=== PATIENT | female | born 1955 | race Caucasian/White ===

== ENCOUNTER 2023-03-05 14:07 | Outpatient (RCR) | payer OTHER, SELFPAY | END 2023-05-24 10:33 | disposition home or self-care (01) | PROVIDERS: PCP Family Medicine; Visit Provider Orthopaedic Surgery Sports Medicine | DX: M17.12 Unilateral primary osteoarthritis, left knee (principal); M25.562 Pain in left knee; M25.662 Stiffness of left knee, not elsewhere classified; Z51.89 Encounter for other specified aftercare | CPT/HCPCS: 97161; 97535 ==

== ENCOUNTER 2023-03-07 07:08 | Day surgery (SDC) | payer OTHER, SELFPAY ==
[2023-03-05 12:08] VITALS: BP 122/84; PULSE 57; RESP 16; TEMP 35.9; O2SAT 93
[2023-03-05 12:15] VITALS: BP 124/71; PULSE 57; RESP 16; TEMP 35.9; O2SAT 93
[2023-03-07] VITALS (25 sets, daily range): BP systolic 107–145; BP diastolic 65–97; PULSE 47–81; RESP 12–18; TEMP 35.9–36.7; O2SAT 93–98; BMI 45.4
--- OUTSIDE RECORDS SUMMARY | 2023-03-07 07:11 | XMS_ITS ---
Author Name ANAMARIA WILLIS TIMOT HY Address Unknown Phone [phone] Organization Unknown Address Unknown Phone [phone] Care Team Providers Care Historical Site Guide Name Role Phone ANAMARIA WILLIS CRNA TIMOTHY Attending [phone] OUT OF AREA, . Primary Care [phone] ANAMARIA WILLIS CRNA TIMOTHY Physician [phone] Allergies and Intolerances Substance Reaction Severity Activated Date Status CALAN SR Rash Unknown 11/13/2022 Active CODEINE SULFATE nausea Unknown 11/13/2022 Active MORPHINE SULFATE GI Symptoms,Vomiting (disorder) Moderate 11/22/2022 Active PENICILLIN V POTASSIUM Rash Unknown 11/13/2022 Ac tive VENLAFAXINE HYDROCHLORIDE unknown Unknown 11/13/2022 Active ASSESSMENT Assessment Charted Date/Time No assessment available Encounter Diagnosis Encounter Diagnosis Diagnosis Date/Time Status Pain in left knee [M25.562] 12/06/2022 09:10 com pleted Medications Medication Strength Dosage Route Frequency Start Date Stop Date Status aspirin 81 MG Tablet Chewable 81 MG Tablet Chewable 81 mg Oral 1 x daily 3 08:40 active Crestor 10 MG Tablet 10 MG Tablet 10 mg Oral 1 x at bedtime 3 08:46 active NTG 0.4 MG Tablet Sublingual 0.4 MG Tablet Sublingual 0.4 mg Sublingual as needed every 5 minutes 3 08:43 active Oxy-IR 5 MG Tablet 5 MG Tablet 5 mg Oral as needed 2 x daily 3 08:45 active Synthroid 88 mcg 88 MCG Tablet 88 MCG Tablet 88 mcg Oral 1 x daily every morning 3 08:41 active Toprol XL 50 MG Tablet Extended Release 24 Hour 50 MG Tablet Extended Release 24 Hour 50 mg Oral 1 x daily 3 08:42 active Ultram 50 MG Tablet 50 MG Tablet 50 mg Oral as needed every 8 hours 3 15:49 active Vitamin D 1000 UNIT Tablet 1000 UNIT Tablet 1000 IU Oral 1 x daily 3 08:40 active Zestril / Prinivil 2.5 MG Tablet 2.5 MG Tablet 2.5 mg Oral 1 x daily 3 08:41 active Procedures Procedure Frequency Last Procedure Date Status Biopsy of breast (procedure) [633422363] completed Bypass of stomach (procedure) [238356795] completed Hysterectomy (procedure) [985704725] completed Placement of stent in wilhelm ry artery (procedure) [88593114] completed Total replacement of right k nee joint (procedure) [047907402] completed Appendectomy (procedure) [56261435] completed Cholecystectomy (procedure) [83230525] completed Plan of Treatment Plan Description Date Appointment ANAMARIA WILLIS TIMOTHY 3 Appointment ANAMARIA WILLIS TIMOTHY 3 Appointment ANAMARIA WILLIS TIMOTHY 3 Social History SOCIAL HISTORY TOBACCO USE Type Status Start Date End Date Last Reviewed Current Smoking Status Tobacco smoking c onsumption unknown Gender Identity and Sexual O rientation Type Status Last Reviewed Sex Female 00:00
--- OUTSIDE RECORDS SUMMARY | 2023-03-07 07:11 | XMS_ITS ---
Author Name ANAMARIA WILLIS TIMOT HY Address Unknown Phone [phone] Organization Unknown Address Unknown Phone [phone] Care Team Providers Care Chief Administrative Officer Name Role Phone ANAMARIA WILLIS CRNA TIMOTHY Attending [phone] ANAMARIA WILLIS CRNA TIMOTHY Admitting [phone] OUT OF AREA, . Primary Care [phone] ANAMARIA WILLIS CRNA TIMOTHY Ordering [phone] ANAMARIA WILLIS CRNA TIMOTHY Physician [phone] Allergies and Intolerances Substance Reaction Severity Activated Date Status CALAN SR Rash Unknown 11/13/2022 Active CODEINE SULFATE nausea Unknown 11/13/2022 Active MORPHINE SULFATE GI Symptoms,Vomiting (disorder) Moderate 11/22/2022 Active PENICILLIN V POTASSIUM Rash Unknown 11/13/2022 Ac tive VENLAFAXINE HYDROCHLORIDE unknown Unknown 11/13/2022 Active ASSESSMENT Assessment Charted Date/Time No assessment available Encounter Diagnosis Encounter Diagnosis Diagnosis Date/Time Status Pain in left knee [M25.562] 12/13/2022 07:57 com pleted Medications Medication Strength Dosage Route [...] Procedure Date Status Biopsy of breast (procedure) [565713958] completed Bypass of stomach (procedure) [969218158] completed Hysterectomy (procedure) [143801157] completed Placement of stent in wilhelm ry artery (procedure) [07227468] completed Total replacement of right k nee joint (procedure) [097007680] completed Appendectomy (procedure) [82542116] completed Cholecystectomy (procedure) [10004030] completed Vital Signs Description Result Charted Date/Time [facility] Blood Pressure - Systolic mm [Hg] - Sitting - Left Arm 101 12/13/2022 10:13 8480-6 Blood Pressure - Diastolic m m[Hg] - Sitting - Left Arm 54 12/13/2022 10:13 8462-4 MAP mm/Hg 69.67 12/13/2022 10:13 8478-0 Height/Length cm/in 157.48 / 62 12/13/2022 08:14 8302 -2 Weight kg/lb oz 102.97 / 227 12/13/2022 08:14 16095-7 BMI (Ratio) 41.52 12/13/2022 08:14 38875-3 Temperature deg F/Kathleen 97.2 / 36.2 12/13/2022 10:13 83 10-5 Heart Rate /min 63 12/13/2022 10:13 8867-4 Respiration /min 16 12/13/2022 10:13 9279-1 Pain Scale 0 12/13/2022 10:13 78071-0 SpO2 % 95 12/13/2022 10:13 35623-1 Medications Administered Medication Start Date Dosage Route Frequency Last Adm inistered fentaNYL citrate inj (100 mcg/2 ml) (Sublimaze) 12/13/2022 09:13 50 mcg IV PUSH ONCE 09:13 fentaNYL citrate inj (100 mcg/2 ml) (Sublimaze) 12/13/2022 09:20 50 mcg IV PUSH ONCE 09:20 midazolam inj 2 mg/2 ml (Versed) 12/13/2022 09:14 1 mg IV PUSH ONCE 12/13/2022 09:14 midazolam inj 2 mg/2 ml (Versed) 12/13/2022 09:19 1 mg IV PUSH ONCE 12/13/2022 09:19 Plan of Treatment Plan Description Date Appointment ANAMARIA WILLIS TIMOTHY 3 Appointment ANAMARIA WILLIS TIMOTHY 3 Social History SOCIAL HISTORY TOBACCO USE Type Status Start Date End Date Last Reviewed Current Smoking Status Tobacco smoking c onsumption unknown Gender Identity and Sexual O rientation Type Status Last Reviewed Sex Female 00:00
--- OUTSIDE RECORDS SUMMARY | 2023-03-07 07:11 | XMS_ITS ---
Author Name ANAMARIA WILLIS TIMOT HY Address Unknown Phone [phone] Organization Unknown Address Unknown Phone [phone] Care Team Providers Care Show Design Supervisor Name Role Phone ANAMARIA WILLIS CRNA TIMOTHY Attending [phone] OUT OF AREA, . Primary Care [phone] ANAMARIA WILLIS CRNA TIMOTHY Physician [phone] Allergies and Intolerances Substance Reaction Severity Activated Date Status CALAN SR Rash Unknown 11/13/2022 Active CODEINE SULFATE nausea Unknown 11/13/2022 Active MORPHINE SULFATE GI Symptoms,Vomiting (disorder) Moderate 11/22/2022 Active PENICILLIN V POTASSIUM Rash Unknown 11/13/2022 Ac tive VENLAFAXINE HYDROCHLORIDE unknown Unknown 11/13/2022 Active ASSESSMENT Assessment Charted Date/Time No assessment available Encounter Diagnosis Encounter Diagnosis Diagnosis Date/Time Status Pain in unspecified knee [M25.569] 01/24/2023 10 :15 completed Medications Medication Strength Dosage Route Frequency Start [...] Procedure Date Status Biopsy of breast (procedure) [703398774] completed Bypass of stomach (procedure) [891671367] completed Hysterectomy (procedure) [149073634] completed Placement of stent in wilhelm ry artery (procedure) [91251132] completed Total replacement of right k nee joint (procedure) [454875064] completed Appendectomy (procedure) [73636344] completed Cholecystectomy (procedure) [27929049] completed Plan of Treatment Plan Description Date Appointment ANAMARIA WILLIS TIMOTHY 3 Social History SOCIAL HISTORY TOBACCO USE Type Status Start Date End Date Last Reviewed Current Smoking Status Tobacco smoking c onsumption unknown Gender Identity and Sexual O rientation Type Status Last Reviewed Sex Female 00:00
--- OUTSIDE RECORDS SUMMARY | 2023-03-07 07:11 | XMS_ITS ---
Author Name ANAMARIA WILLIS TIMOT HY Address Unknown Phone [phone] Organization Unknown Address Unknown Phone [phone] Care Team Providers Care Telecommunicator Name Role Phone ANAMARIA WILLIS CRNA TIMOTHY Attending [phone] ANAMARIA WILLIS CRNA TIMOTHY Admitting [phone] OUT OF AREA, . Primary Care [phone] ANAMARIA WILLIS CRNA TIMOTHY Physician [phone] Allergies and Intolerances Substance Reaction Severity Activated Date Status CALAN SR Rash Unknown 11/13/2022 Active CODEINE SULFATE nausea Unknown 11/13/2022 Active MORPHINE SULFATE GI Symptoms,Vomiting (disorder) Moderate 11/22/2022 Active PENICILLIN V POTASSIUM Rash Unknown 11/13/2022 Ac tive VENLAFAXINE HYDROCHLORIDE unknown Unknown 11/13/2022 Active ASSESSMENT Assessment Charted Date/Time No assessment available Encounter Diagnosis Encounter Diagnosis Diagnosis Date/Time Status Pain in left knee [M25.562] 11/29/2022 07:54 com pleted Medications Medication Strength Dosage Route [...] Procedure Date Status Biopsy of breast (procedure) [315982471] completed Bypass of stomach (procedure) [883536627] completed Hysterectomy (procedure) [818415695] completed Placement of stent in wilhelm ry artery (procedure) [23784151] completed Total replacement of right k nee joint (procedure) [181797856] completed Appendectomy (procedure) [45569542] completed Cholecystectomy (procedure) [27249024] completed Vital Signs Description Result Charted Date/Time [facility] Blood Pressure - Systolic mm [Hg] - Sitting - Right arm 124 11/29/2022 09:06 8480-6 Blood Pressure - Diastolic m m[Hg] - Sitting - Right arm 58 11/29/2022 09:06 8462-4 MAP mm/Hg 80 11/29/2022 09:06 8478-0 Height/Length cm/in 152.4 / 60 11/29/2022 08:04 8302 -2 Weight kg/lb oz 103.87 / 229 11/29/2022 08:04 88843-3 BMI (Ratio) 44.72 11/29/2022 08:04 82956-2 Temperature deg F/Kathleen 97.5 / 36.4 11/29/2022 09:06 83 10-5 Heart Rate /min 65 11/29/2022 09:06 8867-4 Respiration /min 18 11/29/2022 09:06 9279-1 Pain Scale 0 11/29/2022 09:06 99044-0 Blood Sugar mg/dL 163 11/29/2022 08:04 85129- 7 SpO2 % 94 11/29/2022 09:06 21681-5 Plan of Treatment Plan Description Date Appointment [...]
--- OUTSIDE RECORDS SUMMARY | 2023-03-07 07:11 | XMS_ITS ---
Author Name ANAMARIA WILLIS TIMOT HY Address Unknown Phone [phone] Organization Unknown Address Unknown Phone [phone] Care Team Providers Care Casing Crew Name Role Phone ANAMARIA WILLIS CRNA TIMOTHY Attending [phone] ANAMARIA WILLIS CRNA TIMOTHY Admitting [phone] OUT OF AREA, . Primary Care [phone] ANAMARIA WILLIS CRNA TIMOTHY Physician [phone] Allergies and Intolerances Substance Reaction Severity Activated Date Status CALAN SR Rash Unknown 11/13/2022 Active CODEINE SULFATE nausea Unknown 11/13/2022 Active MORPHINE SULFATE GI Symptoms,Vomiting (disorder) Moderate 11/22/2022 Active PENICILLIN V POTASSIUM Rash Unknown 11/13/2022 Ac tive VENLAFAXINE HYDROCHLORIDE unknown Unknown 11/13/2022 Active ASSESSMENT Assessment Charted Date/Time No assessment available Encounter Diagnosis Encounter Diagnosis Diagnosis Date/Time Status Pain in left knee [M25.562] 11/22/2022 07:07 com pleted Medications Medication Strength Dosage Route [...] Procedure Date Status Biopsy of breast (procedure) [481970499] completed Bypass of stomach (procedure) [993191223] completed Hysterectomy (procedure) [832072319] completed Placement of stent in wilhelm ry artery (procedure) [53419648] completed Total replacement of right k nee joint (procedure) [549925169] completed Appendectomy (procedure) [07206498] completed Cholecystectomy (procedure) [05041332] completed Vital Signs Description Result Charted Date/Time LOINC Blood Pressure - Systolic mm [Hg] - Sitting - Left Arm 106 11/22/2022 07:24 8480-6 Blood Pressure - Diastolic m m[Hg] - Sitting - Left Arm 62 11/22/2022 07:24 8462-4 MAP mm/Hg 76.67 11/22/2022 07:24 8478-0 Height/Length cm/in 152.4 / 60 11/22/2022 07:24 8302 -2 Weight kg/lb oz 104.33 / 230 11/22/2022 07:24 51245-0 BMI (Ratio) 44.92 11/22/2022 07:24 70550-5 Temperature deg F/Kathleen 97 / 36.1 11/22/2022 07:24 83 10-5 Heart Rate /min 80 11/22/2022 07:24 8867-4 Respiration /min 20 11/22/2022 07:24 9279-1 Pain Scale 7 11/22/2022 07:24 97483-1 SpO2 % 94 11/22/2022 07:24 35231-2 Plan of Treatment Plan Description Date Appointment [...]
[2023-03-07] MEDS: LACTATED RINGERS 1000 ML 1,000 ML 100 ML IV (07:30)
--- NOTE | 2023-03-07 07:31 | CRLHL7_ITS ---
For Patients: As a result of the Cures Act, medical imaging exams and procedure reports are released immediately into your electronic medical record. You may view this report before your referring provider. If you have questions, please contact your health care provider. Indication: POST OP TKA Technique: Two views left knee Findings/Impression: Hardware from a left total knee arthroplasty is in satisfactory position. Bone alignment is normal. No sign of acute fracture. Postop changes are within normal limits. Dictated by Remy Overton MD @ 03/07/2023 12:27:16 PM (Electronically Signed)
[2023-03-07] MEDS: OXYCODONE (CR) 10 MG TAB.ER.12H PO (07:49)
[2023-03-07] MEDS: ACETAMINOPHEN 500 MG TABLET 1000 MG PO ×3 (07:49→19:52)
[2023-03-07] MEDS: SODIUM CHLORIDE 0.9 % (FLUSH) 10 ML SYRINGE IVF (07:50)
[2023-03-07] MEDS: MIDAZOLAM HCL 1 MG/ML inj IVP (08:31)
[2023-03-07] MEDS: fentaNYL 100 MCG/2 ML inj IVP (08:31)
--- NOTE | 2023-03-07 08:40 | P.NB_ITS ---
Nerve Block Nerve Block Time Seen by Provider: 08:34 Date Seen: 03/07/23 Type of block requested by surgeon for post-operative analgesia: adductor canal Side: left Time out performed: Yes Verification of patient name: Yes Verification of date of : Yes Site marking: site marked Name of person performing procedure: Conrado Continuous monitoring Was continuous monitoring of O2 sat, B/P, equipment monitor phototypesetting, recorded every 15 minutes?: Yes Procedure Checklist: sterile prep, needles and gloves Ultrasound guided. Images saved: Yes Medications given in 5ml increments after negative aspiration: Ropivicaine %: 0.5 mL: 20 Needle gauge: 20 Decadron (mg): 10 Precedex (mcg): 25 Patient tolerated procedure well: Yes Additional comments: Needle noted adjacent to nerve Block Charges Block Charge (with Pro Fee): Femoral Nerve Use of Ultrasound Machine for Block: Yes- US Guidance/pain block
--- NOTE | 2023-03-07 08:41 | W.PM.NB ---
Nerve Block Nerve Block Time Seen by Provider: 08:34 Date Seen: 03/07/23 Type of block requested by surgeon for post-operative analgesia: geniculars Side: left Time out performed: Yes Verification of patient name: Yes Verification of date of : Yes Site marking: site marked Name of person performing procedure: Conrado Continuous monitoring Was continuous monitoring of O2 sat, B/P, monitoring manager, recorded every 15 minutes?: Yes Procedure Checklist: sterile prep, needles and gloves Medications given in 5ml increments after negative aspiration: Ropivicaine %: 0.5 mL: 9 Needle gauge: 25 Patient tolerated procedure well: Yes Block Charges Block Charge (with Pro Fee): Genicular Nerve Block Use of Ultrasound Machine for Block: No
--- NOTE | 2023-03-07 08:41 | W.ANESCHARGE ---
Anesthesia Charges Start Date/Time Anesthesia Start Date: 03/07/23 Anesthesia Start Time: 09:07 Stop Date/Time Anesthesia Stop Date: 03/07/23 Anesthesia Stop Time: 11:27
--- NOTE | 2023-03-07 08:42 | SUR.PREOP ---
TIME?OUT:?0830 PT/RN/MDA?VERIFICATION?OF?SURGICAL?SITE left knee,?PROCEDURE nerve block,?AND?CONSENT OBTAINED?PRIOR?TO?INVASIVE?PROCEDURE.
[2023-03-07] MEDS: TRANEXAMIC ACID 100 MG/ML INJ 1000 MG IV (09:20)
[2023-03-07] MEDS: CEFAZOLIN 2 GM in 0.9 % SODIUM CHLORIDE Mini-bag 100 ML IVPB ×3 (09:20→23:40)
--- NOTE | 2023-03-07 10:43 | PM.ORPRC ---
Procedure Note Date of procedure: 03/07/23 Procedure: PREOPERATIVE DIAGNOSIS: 1. Left knee osteoarthritis, primary, severe 2. Morbid obesity-BMI 45.5 POSTOPERATIVE DIAGNOSIS: 1. Left knee osteoarthritis, primary, severe 2. Morbid obesity-BMI 45.5 PROCEDURE: 1. Left total knee arthroplasty-of note, 33% added difficulty and time for this case due to patient's body habitus with BMI 45.5. This necessitated the stem of the tibial component to minimize the risk for aseptic loosening. This also required increased retractors and hands for assistance as well as increased closure time. SURGEON: Javon Mg MD. VISUAL PRESENTATION MANAGER: Francisco James PA-C - Of note, a skilled orthopaedic physician assistant was critical for this case to aid in patient positioning, tissue retraction, limb manipulation/positioning, and closure. ANESTHESIA: Spinal anesthetic EBL: 50ml IMPLANTS: DePuy J&J all cemented TKA - Attune PS femur size 5 regular, size 3 tibia with the 10 x 50 mm tibial stem, 5 poly spacer, 30 to mm patella TOURNIQUET: 90 min at 300 torr COMPLICATIONS: None evident INDICATIONS: The patient is a pleasant 68-year-old female who has experienced severe left knee pain and difficulty bearing weight. Workup included x-rays which revealed severe osteoarthrosis in the knee. Given the deformity, the dysfunction, and the pain, as well as the failure of nonoperative management, recommendation was made for surgery. FINDINGS: Moderate effusion upon entering the joint. Full-thickness chondral loss broadly throughout the medial femoral condyle, trochlear groove, and patella. To lesser degree lateral compartment. Tricompartmental osteophytes noted. Relatively soft cancellous bone encountered throughout. DESCRIPTION OF PROCEDURE: Following a thorough discussion of risks, benefits, and alternatives consent was obtained and the left knee was marked. The patient was brought to the operating room and placed supine on the operating table. Induction of anesthesia was undertaken. 2 g IV Ancef and 1 g tranexamic acid was administered within 1 hr of incision preoperatively. Proper time-out was performed identifying proper patient, site, procedure. The operative extremity was prepped and draped in the appropriate sterile fashion using ChloraPrep after the patient was positioned supine with all bony prominences well padded. A longitudinal, anterior, midline skin incision was made starting approximately 3cm proximal to the superior pole of the patella and advanced distal to the tibial tubercle. A median parapatellar arthrotomy was created. A medial subperiosteal sleeve was created with knife, crain elevator and curved osteotome. The retropatellar fatpad was resected and the synovium in the suprapatellar pouch excised to visualize the anterior femoral cortex. Femoral preparation was performed via an intramedullary guide. Step drill allowed access into the femoral canal. The distal cutting guide was placed with 5? of valgus and 10 mm cut on the distal femur. Femur was sized using a posterior referencing guide in 3? of external rotation. This found have a best fit with the sizing noted above. The 4 in 1 cutting block was then placed, and the distal femur shaped accordingly. The box cut was then created and the trial implant inserted to confirm appropriate fit. We turned our attention to the proximal tibia. Extramedullary guide was utilized for cutting with the goal of being 90 degree cut from the mechanical axis of the tibia in the varus/valgus plane utilizing tibial crest as the primary alignment. Initially a 2 mm resection was performed from the medial tibial plateau. An additional 2 mm did require resection. Ultimately, balancing was achieved in both flexion and extension in both varus and valgus. The knee was able to achieve full extension as well comfortably. The patella was initially measured and found have a thickness of 22 mm. It was resected back to approximately 14.5 mm. It was sized to be a best fit with as noted above. This was drilled, trial placed. All trials were placed and found to have an excellent stability and balance. At this stage, trial implants were removed, the knee was thoroughly irrigated with normal saline, and the cement was mixed. After irrigation, the knee was thoroughly dried, and cement placed, with the real tibial and femoral implants placed along with the patella. Trial poly spacer was placed and confirmed to have excellent range of motion and full extension, and the real poly spacer opened and inserted. All extra cement was removed, and a 3 min Betadine soak performed. Finally, a final irrigation round with normal saline was performed. Closure performed with 0 PDS and #0 Stratafix for the quad tendon/retinaculum. 2-0 Vicryl/Stratafix for the subcutaneous and 4-0 Monocryl for subcuticular closure. Dressings were applied and the patient was awoken from anesthesia after the tourniquet deflated and transferred the PACU in stable condition. A skilled orthopaedic physician assistant was critical for this case to aid in patient positioning, tissue retraction, bone exposure, limb manipulation/positioning, patient safety, and closure. *Of note, 33% added difficulty and time for this case due to patient's body habitus with BMI 45.5. This necessitated the stem of the tibial component to minimize the risk for aseptic loosening. This also required increased retractors and hands for assistance as well as increased closure time. PLAN: 1. Weight bear as tolerated operative extremity. 2. 23 hr perioperative antibiotics. 3. Ice. 4. PT/OT consults for ambulation assistance/mobility education. 5. Social work consult for discharge planning. 6. DVT prophylaxis with at SCDs, Dhruv Hose, and aspirin twice daily.
--- NOTE | 2023-03-07 11:27 | W.ANESCHARGE ---
Anesthesia Charges Start Date/Time Anesthesia Start Date: 03/07/23 Anesthesia Start Time: 09:07 Stop Date/Time Anesthesia Stop Date: 03/07/23 Anesthesia Stop Time: 11:27
--- NOTE | 2023-03-07 14:02 | PM.IMPN1 ---
Progress Note: A&P Assessment and plan (1) Osteoarthritis of left knee: Problem details: End-stage medial and patellofemoral compartments Status: Acute (2) Obesity, Class III, BMI 40-49.9 (morbid obesity): Problem details: BMI 44.2 (previous BMI of 45) Status: Acute (3) History of coronary artery stent placement: Problem details: 2020 Status: Acute Plan 1. s/p 1.? Left total knee arthroplasty/ Spinal anesthetic/EBL:50ml -pain control; diet; dvt ppx per surgery 2. Hx of CAD/HTN -hold metoprolol and lisinopril due to soft BP and bradycardia -continue statin 3. Hx of diet controlled T2Dm; a1c 5.4 -continue gabapentin 4. hx of Hypothyroidism -cotninue synthroid 5. Hx of HLD -continue statin 6. Hx of SUMANTH -does not use cpap Subjective Date Seen: 03/07/23 Interval history: POSTOPERATIVE DIAGNOSIS: 1.? Left knee osteoarthritis, primary, severe 2.? Morbid obesity-BMI 45.5 PROCEDURE: 1.? Left total knee arthroplasty ANESTHESIA:? Spinal anesthetic EBL: ? 50ml The patient is stable following surgery She denies chest pain, sob, nausea and vomiting post surgical pain is controlled tolerating diet at bedside Exam Narrative: Exam Narrative: Gen: no acute distress HEENT: NCAT EOMI mmm CV: bradycardic normal s1 s2 Lungs: CTAB Abd: Soft,nt, nd Neuro: Alert, oriented, CN grossly intact; nonfocal screening?exam Psych: appropriate affect MSK: age appropriate muscle mass Skin; Warm, dry no rash on face Const: Vital Signs, click to edit/add: Vital Signs - 24 hr 03/07/23 07:38 03/07/23 08:08 03/07/23 08:32 Temperature 97.7 F Pulse Rate 61 60 55 L Respiratory Rate 16 16 16 Blood Pressure 135/75 127/70 135/73 Pulse Oximetry 94 98 98 Oxygen Delivery Me thod Room Air Nasal Cannula Nasal Cannula Oxygen Flow Rate 2 2 03/07/23 08:36 03/07/23 11:23 03/07/23 11:30 Temperature 97.3 F L Pulse Rate 56 L 62 58 L Respiratory Rate 16 12 14 Blood Pressure 114/65 107/65 107/70 Pulse Oximetry 98 96 95 Oxygen Delivery Me thod Nasal Cannula Room Air Room Air Oxygen Flow Rate 2 03/07/23 11:35 03/07/23 11:40 03/07/23 11:45 Temperature 97.2 F L Pulse Rate 59 L 53 L 55 L Respiratory Rate 12 12 14 Blood Pressure 109/69 114/75 115/74 Pulse Oximetry 94 95 94 Oxygen Delivery Me thod Room Air Room Air Room Air Oxygen Flow Rate 03/07/23 11:50 03/07/23 11:55 03/07/23 12:00 Temperature 97.3 F L Pulse Rate 56 L 58 L 54 L Respiratory Rate 12 12 14 Blood Pressure 118/74 118/74 122/81 Pulse Oximetry 94 94 95 Oxygen Delivery Me thod Room Air Room Air Room Air Oxygen Flow Rate
[2023-03-07] MEDS: OXYCODONE 5 MG TABLET PO ×4 (14:05→22:23)
--- NOTE | 2023-03-07 15:09 | PC.NURSE ---
Pt arrived in hospital bed from PACU to med/surg room 257 @ 1208 pm s/p LTKA with Dr. Mg. Please see initial assessment from PACU and frequent post op VS per protocol. Pt tolerated CL lunch. Oxycodone 5mg with tylenol ES 1000 mg PO for pain 1 out of 10 as premed for planned PT with [facility] at 3pm. Eval by Dr. Finley. Pt has not yet voided since arrival to floor. Report to Kami REYES.
[2023-03-07] MEDS: LACTATED RINGERS 1000 ML 1,000 ML 75 ML IV (15:26)
--- NOTE | 2023-03-07 18:45 | PC.NURSE ---
VSS AND AFEBRILE. DRESSING CDI. CRYOCUFF TO LEFT KNEE. PAIN CONTROLLED WITH SCHEDULED TYLENOL AND PRN OXYCODONE. UP WITH A1, WALKER AND GAIT BELT AND TOLERATING ACTIVITY WELL. TOLERATING REGULAR DIET WITH NO C/O N/V.
[2023-03-07] MEDS: ROSUVASTATIN CALCIUM 10 MG TABLET PO (21:04)
[2023-03-07] MEDS: GABAPENTIN 100 MG CAPSULE PO (21:04)
[2023-03-07] MEDS: SENNOSIDES 1 TAB TABLET 2 TAB PO (21:04)
[2023-03-07] MEDS: ASPIRIN 81 MG TABLET EC PO (21:04)
[2023-03-08] MEDS: ACETAMINOPHEN 500 MG TABLET 1000 MG PO ×2 (02:24→08:10)
[2023-03-08] MEDS: OXYCODONE 5 MG TABLET PO ×3 (02:24→10:24)
[2023-03-08 03:00] VITALS: BP 126/63; PULSE 84; RESP 20; TEMP 36.3; O2SAT 92
--- NOTE | 2023-03-08 05:33 | PC.NURSE ---
Alert and oriented x 4. CMS to left lower extremity intact, mild weakness to extremity. Dressing to left knee clean, dry and intact. Cryocuff utilized. Pain well managed wtih tylenol and prn oxycodone. Up with SBA with walker. Drinking well and having good output, IV fluids stopped and saline locked. At 0315 patient requested plexipulses be stopped for a short period of time as they were keeping her awake, marine underwriter removed and patient educated on frequent ankle pumps while awake. Denies any nausea or vomiting.
[2023-03-08] MEDS: LEVOTHYROXINE 88 MCG TABLET PO (06:22)
[2023-03-08 06:33] LABS: Hematocrit 35.2 % (33.0-51.0); Hemoglobin* 11.6 gm/dL (12.0-16.0); Immature Granulocytes Pct Auto 0.2 %; Lymphocytes Percent Auto 12.9 % (20-44); Mean Corpuscular HGB Conc 33 gm/dL (32-36); Mean Corpuscular Hemoglobin 30 pg (26-34); Mean Corpuscular Volume 92 fL (80-100); Monocytes Percent Auto 7.2 % (0.0-11.0); Neutrophils Percent Auto 79.7 % (42.0-72.0); Platelet Count* 288 K/uL (140-440); RDW Coefficient of Variation % 12.6 % (11.5-15.5); Red Blood Count 3.84 m/uL (4.00-5.20); White Blood Count* 12.28 K/uL (4.50-11.00)
[2023-03-08 06:40] LABS: Slide Review Reflex No
[2023-03-08 06:46] LABS: Sodium* 136 mmol/L (135-149)
[2023-03-08 06:47] LABS: Potassium* 4.3 mmol/L (3.6-5.1)
[2023-03-08 06:50] LABS: Blood Urea Nitrogen* 14 mg/dL (7-30); Creatinine* 0.6 mg/dL (0.5-1.5); Est. Creatinine Clearance* 39.75; Estimated Glomerular Filt Rate 99 ml/min
[2023-03-08 07:00] VITALS: BP 145/68; PULSE 78; RESP 18; TEMP 36.8; O2SAT 97
[2023-03-08] MEDS: SENNOSIDES 1 TAB TABLET 2 TAB PO (08:10)
[2023-03-08] MEDS: ASPIRIN 81 MG TABLET EC PO (08:11)
[2023-03-08] MEDS: CEFAZOLIN 2 GM in 0.9 % SODIUM CHLORIDE Mini-bag 100 ML IVPB (08:11)
[2023-03-08 09:12] VITALS: BP 122/81; PULSE 54; RESP 20; TEMP 36.3
[2023-03-08 11:00] VITALS: BP 141/77; PULSE 91; RESP 18; O2SAT 93
--- NOTE | 2023-03-08 11:57 | PC.NURSE ---
Nursing Care Hours: [id number] Pt this shift calm and cooperative. Alert and oriented. Pain 4/10 prior to PT, 6/10 after, treated per eMAR. Bandage CDI, CMS intact. Pt tolerating regular meals, up to bathroom with SB assist. LS clear, diminished bases. Encouraged pt to use IS and take deep breaths. IV removed for discharge, instructions and education went over with pt and spouse. All questions and concerns addressed, wheeled out to vehicle in stable condition.
--- NOTE | 2023-03-08 16:25 | PM.ORPN ---
Subjective Subjective Date Seen: 03/08/23 Principal diagnosis: Status postop day 1 left total knee arthroplasty Interval history: Patient reports doing well. No acute events over night. Pain managed with scheduled and PRN medications, ice. DVT prophylaxis: 81 mg aspirin by mouth twice daily, bilateral knee high Dhruv stockings, SCDs, walking. Denies fevers, chills, aches, N/V, CP, SOB/GARAY, or lightheadedness. POSTOPERATIVE DIAGNOSIS: 1.? Left knee osteoarthritis, primary, severe 2.? Morbid obesity-BMI 45.5 PROCEDURE: 1.? Left total knee arthroplasty ANESTHESIA:? Spinal anesthetic EBL: ? 50ml The patient is stable following surgery She denies chest pain, sob, nausea and vomiting post surgical pain is controlled tolerating diet at bedside Ortho Exam Narrative Exam Narrative: -Patient appears comfortable; no apparent acute distress -Alert and oriented times 3 -Operative knee mildly swollen; soft tissues supple; no ecchymosis; no erythematous streaking Warmth appropriate -Surgical dressing clean, dry, intact; no drainage -Bilateral calfs soft; no significant swelling, edema, tenderness, erythema, discoloration, warmth, or palpable cords -2+ DP/PT pulses, intact dermatomes and myotomes distally (5/5 strength) Const Vital Signs, click to edit/add: Vital Signs - 24 hr 03/07/23 17:00 03/07/23 17:42 03/07/23 19:50 Temperature 97 F L 98.0 F Pulse Rate Pulse Rate [Right Pulse Oximeter] 67 60 81 Respiratory Rate 16 16 12 Blood Pressure Blood Pressure [Left Arm] 131/79 140/97 H 132/77 Pulse Oximetry 96 96 95 Oxygen Delivery Method Room Air Room Air Room Air Oxygen Flow Rate 2 03/07/23 19:50 03/07/23 23:00 03/07/23 23:00 Temperature 97.1 F L Pulse Rate Pulse Rate [Right Pulse Oximeter] 81 79 Respiratory Rate 12 18 Blood Pressure Blood Pressure [Left Arm] 145/75 H Pulse Oximetry 93 93 Oxygen Delivery Method Room Air Oxygen Flow Rate 03/08/23 03:00 03/08/23 07:00 03/08/23 07:00 Temperature 97.4 F L Pulse Rate Pulse Rate [Right Pulse Oximeter] 84 78 Respiratory Rate 20 18 Blood Pressure Blood Pressure [Left Arm] 126/63 Pulse Oximetry 92 97 Oxygen Delivery Method Room Air Oxygen Flow Rate 03/08/23 07:00 03/08/23 09:12 03/08/23 11:00 Temperature 98.2 F 97.4 F L Pulse Rate 54 L Pulse Rate [Right Pulse Oximeter] 91 Respiratory Rate 18 20 18 Blood Pressure 122/81 Blood Pressure [Left Arm] 145/68 H 141/77 H Pulse Oximetry 97 93 Oxygen Delivery Method Room Air Room Air Oxygen Flow Rate Assessment and Plan Assessment and plan (1) S/P total knee arthroplasty: Problem details: POD 1 left Status: Acute (2) Osteoarthritis of left knee: Problem details: End-stage medial and patellofemoral compartments Status: Acute (3) Obesity, Class III, BMI 40-49.9 (morbid obesity): Problem details: BMI 44.2 (previous BMI of 45) Status: Acute (4) History of coronary artery stent placement: Problem details: 2019 Status: Acute Plan - Complete 23 hour perioperative antibiotics. - PT/OT consult for education and assistance. - Social work consult for discharge planning - Prescribed analgesics as needed - DVT prophylaxis: 81 mg aspirin by mouth twice daily, bilateral knee high Dhruv Hose stockings and SCDs - Anticipation is for discharge to home with spouse today 03/08/2023 if the patient remains medically stable, pain is controlled, and they are safe with mobilization.
== END 2023-03-08 10:50 | disposition home or self-care (01) ==
LOC: OR 07:09 → MEDSURG 07:18
PROVIDERS: PCP Family Medicine; Visit Provider Orthopaedic Surgery Sports Medicine
PROC: (CPT 27447; principal; 2023-03-07 09:15)
DX: M17.12 Unilateral primary osteoarthritis, left knee (principal); E66.01 Morbid (severe) obesity due to excess calories; Z68.42 Body mass index [BMI] 45.0-49.9, adult; G89.18 Other acute postprocedural pain; G47.33 Obstructive sleep apnea (adult) (pediatric); I10 Essential (primary) hypertension; I25.10 Atherosclerotic heart disease of native coronary artery without angina pectoris; E11.9 Type 2 diabetes mellitus without complications; E03.9 Hypothyroidism, unspecified
CPT/HCPCS: 27447; 01402; 36415; 64447; 64454; 73560; 76942; 82565; 82962; 84132; 84295; 84520; 85025; 97110; 97116; 97161; 97165; 97535; A9270; C1776; J0690; J1100; J2250; J2405; J2704; J2795; J3010; J7120

== ENCOUNTER 2023-04-25 06:15 | Day surgery (SDC) | payer OTHER, SELFPAY ==
[2023-04-25] VITALS (14 sets, daily range): BP systolic 103–134; BP diastolic 56–75; PULSE 57–79; RESP 10–20; TEMP 36.3–37.1; O2SAT 94–97; BMI 43.5
[2023-04-25] MEDS: LACTATED RINGERS 1000 ML 1,000 ML 100 ML IV (06:25)
[2023-04-25] MEDS: fentaNYL 100 MCG/2 ML inj IVP (07:10)
[2023-04-25] MEDS: MIDAZOLAM HCL 1 MG/ML inj IVP (07:10)
--- NOTE | 2023-04-25 07:18 | SUR.PREOP ---
TIME?OUT:?0709 PT/RN/MDA?VERIFICATION?OF?SURGICAL?SITE,?PROCEDURE,?AND?CONSENT OBTAINED?PRIOR?TO?INVASIVE?PROCEDURE.
--- NOTE | 2023-04-25 07:53 | P.ORPRC_ITS ---
Procedure Note Date of procedure: 04/25/23 Procedure: PREOPERATIVE DIAGNOSIS: 1. 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 Left total knee arthroplasty manipulation under anesthesia SURGEON: Javon Mg MD. PARACHUTE/COMBATANT DIVER OFFICER: SERGIO Solorio ANESTHESIA: General LMA EBL: 0 ml IMPLANTS: None TOURNIQUET: None COMPLICATIONS: None evident INDICATIONS: The patient is a pleasant 68-year-old female who has experienced significant tightness of her left knee following TKA approximately 7 weeks ago. In clinic, she was found have range of motion approximately 0-50 degrees. Given the poor range of motion, it was recommended undergo a manipulation under anesthesia. Of note, she did require the similar experience on the contralateral right knee at approximately 6-7 weeks following that right TKA in the remote past. FINDINGS: Initial range of motion 0-50 degrees. Following manipulation, with simple gravity she achieved 0-110 degrees. With mild pressure she achieved 0- 120 degrees and with significant pressure she achieved 0-135 degrees. DESCRIPTION OF PROCEDURE: Following a thorough discussion of risks, benefits, and alternatives consent was obtained and the left knee was marked. The patient was brought to the operating room and placed supine on the operating table. No antibiotics were utilized as this was planned to be a closed procedure. Proper time-out was performed identifying proper patient, site, procedure. Initially, the range of motion was assessed and found to be 0-50 degrees. Gentle pressure was applied with knee flexion with a short left her arm. Subtle adhesions could be felt and heard to be breaking during the manipulation. Again the motion is noted as above. Following the procedure, the patella also was manipulated today both medial and laterally and found to have improved range of motion compared to the preoperative state. PLAN: 1. Weight bear as tolerated operative extremity. 2. Ice. 3. CPM machine daily 4. PT 3x / week
--- NOTE | 2023-04-25 07:58 | W.ANESCHARGE ---
Anesthesia Charges Start Date/Time Anesthesia Start Date: 04/25/23 Anesthesia Start Time: 07:23 Stop Date/Time Anesthesia Stop Date: 04/25/23 Anesthesia Stop Time: 07:55
--- NOTE | 2023-04-25 07:59 | W.ANESCHARGE ---
Anesthesia Charges Start Date/Time Anesthesia Start Date: 04/25/23 Anesthesia Start Time: 07:23 Stop Date/Time Anesthesia Stop Date: 04/25/23 Anesthesia Stop Time: 07:55
--- NOTE | 2023-04-25 08:26 | P.NB_ITS ---
Nerve Block Nerve Block Time Seen by Provider: 07:14 Date Seen: 04/25/23 Type of block requested by surgeon for post-operative analgesia: adductor canal Side: left Time out performed: Yes Verification of patient name: Yes Verification of date of : Yes Site marking: site marked Name of person performing procedure: Conrado Continuous monitoring Was continuous monitoring of O2 sat, B/P, brasswind instrument repairer, recorded every 15 minutes?: Yes Procedure Checklist: sterile prep, needles and gloves Ultrasound guided. Images saved: Yes Medications given in 5ml increments after negative aspiration: Ropivicaine %: 0.5 mL: 20 Needle gauge: 20 Decadron (mg): 10 Precedex (mcg): 25 Patient tolerated procedure well: Yes Additional comments: Needle noted adjacent to nerve Block Charges Block Charge (with Pro Fee): Femoral Nerve Use of Ultrasound Machine for Block: Yes- US Guidance/pain block
--- NOTE | 2023-04-25 08:27 | W.PM.NB ---
Nerve Block Nerve Block Time Seen by Provider: 07:14 Date Seen: 04/25/23 Type of block requested by surgeon for post-operative analgesia: geniculars Side: left Time out performed: Yes Verification of patient name: Yes Verification of date of : Yes Site marking: site marked Name of person performing procedure: Conrado Continuous monitoring Was continuous monitoring of O2 sat, B/P, rigging loft mechanic, recorded every 15 minutes?: Yes Procedure Checklist: sterile prep, needles and gloves Medications given in 5ml increments after negative aspiration: Ropivicaine %: 0.5 mL: 9 Needle gauge: 25 Patient tolerated procedure well: Yes Block Charges Block Charge (with Pro Fee): Genicular Nerve Block Use of Ultrasound Machine for Block: No
[2023-04-25] MEDS: OxyCODONE/APAP 5-325 TABLET PO (08:58)
== END 2023-04-25 09:25 | disposition home or self-care (01) ==
PROVIDERS: PCP Family Medicine; Visit Provider Orthopaedic Surgery Sports Medicine
PROC: (CPT 27570; principal; 2023-04-25 07:30)
DX: M24.662 Ankylosis, left knee (principal); G89.18 Other acute postprocedural pain
CPT/HCPCS: 27570; 01380; 64447; 64454; 76942; 82962; A9270; J2250; J2405; J2704; J3010; J7120

== ENCOUNTER 2024-11-22 07:50 | Emergency (ER) | payer MEDICARE, OTHER, SELFPAY ==
--- OUTSIDE RECORDS SUMMARY | 2024-11-22 07:52 | XMS_ITS ---
Author Name ANAMARIA WILLIS TIMOT HY Address Unknown Phone [phone] Organization Unknown Address Unknown Phone [phone] Care Team Providers Care Project Construction Manager Name Role Phone ANAMARIA WILLIS CRNA TIMOTHY Attending [phone] ANAMARIA WILLIS CRNA TIMOTHY Admitting [phone] OUT OF AREA, . Primary Care [phone] ANAMARIA WILLIS CRNA TIMOTHY Ordering [phone] ANAMARIA WILLIS CRNA TIMOTHY Physician [phone] Allergies and Intolerances Substance Reaction Severity Activated [...] Procedure Date Status Biopsy of breast (procedure) [245494049] completed Bypass of stomach (procedure) [[id number]] completed Hysterectomy (procedure) [[id number]] completed Placement of stent in wilhelm ry artery (procedure) [[id number]] completed Total replacement of right k nee joint (procedure) [[id number]] completed Appendectomy (procedure) [42821023] completed Cholecystectomy (procedure) [[id number]] completed Vital Signs Description Result Charted Date/Time [facility] Blood Pressure - Systolic mm [Hg] - Sitting - Left Arm 101 12/13/2022 10:13 8480-6 Blood Pressure - Diastolic m m[Hg] - Sitting - Left Arm 54 12/13/2022 10:13 8462-4 MAP mm/Hg 69.67 12/13/2022 10:13 8478-0 Height/Length cm/in 157.48 / 62 12/13/2022 08:14 8302 -2 Weight kg/lb oz 102.97 / 227 12/13/2022 08:14 46655-6 BMI (Ratio) 41.52 12/13/2022 08:14 85867-0 Temperature deg F/Kathleen 97.2 / 36.2 12/13/2022 10:13 83 10-5 Heart Rate /min 63 12/13/2022 10:13 8867-4 Respiration /min 16 12/13/2022 10:13 9279-1 Pain Scale 0 12/13/2022 10:13 04689-7 SpO2 % 95 12/13/2022 10:13 64821-7 Medications Administered Medication Start Date Dosage Route [...]
--- OUTSIDE RECORDS SUMMARY | 2024-11-22 07:52 | XMS_ITS | Clinical Summary ---
Author Organization [facility] Address [address] [place] [id number] Care Team Providers Care Radiation Control Worker Name Role Phone Chantel Koch MD Primary Care Provide r Allergies Active Allergy Reactions Criticality Noted Date Comments Ticagrelor Shortness Of Breath,Nausea Only,Headache,Myalg ia 06/18/2020 Codeine Hives,Nausea Only Medium 08/09/2005 Isosorbide Headache 06/11/2020 Morphine Nausea And Vomiting,Nausea Only Medium 08/09/2005 Nsaids (Non-Steroidal Anti-Inflammatory Drug) *Unknown Unknown 04/21/2009 Patient reports has had Gastric Bypass and unable to take Penicillin V Hives 10/24/2022 Penicillins Hives Medium 08/24/2005 PT. STATES PEN V K SPECIFICALLY Venlafaxine Dizziness 10/24/2022 Venlafaxine Analogues Dizziness Medium 12/07/2009 Verapamil Hives Medium 02/22/2007 Medications CENTRUM ORAL Take 1 Tablet by mouth once daily. 0 Active acetaminophen (TYLENOL EXTRA STRGTH) 500 mg tabletIndication s:Headache Take 1 tablet by mouth every 6 hours if needed for Headache or Pain. Max acetaminophen dose: 4000mg in 24 hrs. 20 tablet 0 03/05/20 14 Active cholecalciferol (VITAMIN D-3) 2,000 unit capsule Take 2,000 Units by mouth once daily. Active aspirin chewable 81 mg chewable tabletIndication s:Coronary artery disease involving lummi coronary artery without angina pectoris, unspecified whether lummi or transplanted heart Take 1 tablet by mouth once daily with a meal. 0 06/20/20 18 Active nitroglycerin (NITROSTAT) 0.4 mg sublingual tabletIndication s:Heart abnormality Place 1 Tablet (0.4 mg) under the tongue every 5 minutes if needed for Chest Pain. Place 1 tablet under the tongue every 5 minutes if needed for Chest Pain. 25 Tablet 2 11/27/19 24 Active ranolazine (RANEXA) 500 mg Controlled-Relea se tabletIndication s:CAD in lummi artery,Chest pain, unspecified type Take 1 Tablet (500 mg) by mouth two times daily. 180 Tablet 3 06/12/20 24 Active gabapentin (NEURONTIN) 100 mg capsuleIndicatio ns:Hot flashes Take 1 Capsule (100 mg) by mouth at bedtime. 90 Capsule 3 06/12/20 24 Active docusate (COLACE) 100 mg capsuleIndicatio ns:Chronic constipation Take 1 Capsule (100 mg) by mouth 2 times daily if needed for Constipation. 06/12/20 24 Active metoprolol tartrate (LOPRESSOR) 25 mg tabletIndication s:Coronary artery disease involving lummi heart, unspecified vessel or lesion type, unspecified whether angina present Take 1 Tablet (25 mg) by mouth two times daily. 180 Tablet 3 06/12/20 24 Active docusate (COLACE) 100 mg capsuleIndicatio ns:Chronic constipation Take 1 Capsule (100 mg) by mouth 2 times daily if needed for Constipation. 180 Capsule 3 06/12/20 24 Active levothyroxine (SYNTHROID) 75 mcg tabletIndication s:Hypothyroidism (acquired) Take 1 Tablet (75 mcg) by mouth before breakfast. 90 Tablet 3 06/19/20 24 Active cyanocobalamin (VITAMIN B12) 1,000 mcg/mL injectionIndicat ions:Vitamin B12 deficiency INJECT 1 ML (1,000 MCG) SUBCUTANEOUS EVERY 4 WEEKS. 3 mL 1 06/29/20 24 Active rosuvastatin (CRESTOR) 10 mg tabletIndication s:CAD in lummi artery Take 1 Tablet (10 mg) by mouth at bedtime. 90 Tablet 3 06/24/20 24 Active semaglutide (Ozempic) 2 mg/3 mL subcutaneous penIndications:C lass 3 severe obesity due to excess calories with serious comorbidity and body mass index (BMI) of 40.0 to 44.9 in adult (HC),Type 2 diabetes mellitus without complication, without long-term current use of insulin (HC) INJECT 0.5MG UNDER THE SKIN ONE TIME WEEKLY 6 mL 2 07/16/20 24 Active Active Problems Problem Noted Date Diagnosed Date Morbid obesity 11/22/2023 Chest pain 11/22/2023 Chronic stable angina 11/22/2023 Migraine syndrome 04/03/2019 Type 2 diabetes mellitus wit hout complication, without long-term current use of insulin 01/30/2019 Hypothyroidism (acquired) 01/30/2019 Unspecified sleep apnea 06/18/2018 Overview (06/18/2018): not using CPAP, (reviewed 09/30/14) Vitamin D deficiency 06/22/2017 CAD in lummi artery 12/12/2016 Overview (11/22/2023): - angiogram 06/13/20: s/p MARYLU pLAD, s/p MARYLU mLAD - CCTA 11/07/23: 1) Diffuse multivessel CAD with patent proximal and mid LAD stenosis. - In between the two LAD stents, there is moderate stenosis due to calcified atherosclerotic plaque and positive remodeling. - CT-FFR cannot be obtained, and if symptoms persist despite OMT, consider either functional evaluation with stress PET or invasive FFR. - angiogram 11/22/23 History of total knee replacement 08/07/2014 Overview (11/13/2021): Overview: [facility] postop CASSY for arthrofibrosis Hyperlipidemia 03/31/2014 Bariatric surgery status 04/07/2007 Overview (04/07/2007): Lap RNY gastric bypass 08/25/2005 Obesity, unspecified 02/25/2007 Overview (02/25/2007): s/p gastric bypass surgery 2004 Osteoarthrosis, unspecified whether generalized or localized, unspecified site 02/25/2007 Resolved Problems Problem Noted Date Diagnosed Date Resolved Date Open nondisplaced fracture o f distal phalanx of right middle finger with routine healing 04/03/2019 06/16/2020 Contusion of sacrum 03/03/2019 06/16/20 Nondisplaced fracture of dis suma phalanx of right middle finger, subsequent encounter for fracture with routine healing 03/03/2019 06/16/2020 Wrist pain 05/02/2011 12/12/2016 Overview (05/02/2011): Work comp, fell pulling partitions 11/29/10, had fracture of right radial metaphysis, chronic pain in wrist. See Hand Surgery consult note 04/27/11: did injection into ulnar carpal joint. shelter (current) use of anticoagulants 06/24/2010 08/31/2010 Other and unspecified hyperlipidemia 02/25/2007 12/12/2016 Overview (02/25/2007): Last Lipids: Chol: 144 02/23/2007 T 02/23/2007 HDL: 31 02/23/2007 LDL: 96 02/23/2007 Encounters Date Type Department Care Team Description 10/27/2024 Refill [facility] [address] [place] [address] Chantel Koch MD Refill Request (Cyanocobalamin) 09/28/2024 Telephone [facility] [address] [place] [address] Chantel Koch MD Prior Authorization (semaglutide (Ozempic) 2 mg/3 mL subcutaneous pen Approved September 28, 2024 to September 23, 2025) from Last 3 Months Immunizations Name Administration Dates Next Due COVID-19 vaccine (Hollis-J&J) YESSI JON COVID-19 vaccine (Moderna 100mcg/0.5mL) YESSI JON 12/24/2021 Pneumococcal Conj 20-valent (Prevnar 20) 022 Tdap 06/14/2010 Zoster (Shingrix-RZV, recombinant) 01/11/2021, Family History Medical History Relation Name Comments Alcoholism Brother Raphael Diabetes Brother Raphael Melanoma Brother Raphael Heart Disease Father Don [place], age 48 Heart attack Father Don x 5, had an ICD in place, lived into his 80s Heart failure Father Don Stroke Maternal Grandfather Stroke Maternal Grandmother COPD Mother Liyah Rheum arthritis Mother Liyah Premature CHD (under age 60) Other Heart attack Paternal Grandfather Heart attack Paternal Grandmother Good Health Sister 1 Tyshawn Skin cancer Sister 2 Uriel Good Health Sister 3 Chaya Good Health Son 1 Cristino Good Health Son 2 Cathi Good Health Son 3 Jose Cancer-breast No Family History Cancer-ovarian No Family History Relation Name Status Comments Brother Raphael Father Don Maternal Grandfather Maternal Grandmother Mother Liyah Other Paternal Grandfather Paternal Grandmother Sister 1 Tyshawn Alive Sister 2 Uriel Alive Sister 3 Chaya Alive Son 1 Cristino Alive Son 2 Cathi Alive Son 3 Jose Alive Social History Tobacco Use Types Packs/Day Years Used Date Smoking Tobacco: Former Cigarettes 1.5 25 0 10/03/1964 - 10/03/1989 Smokeless Tobacco: Never Tobacco Cessation:Counseling Given: Not Answered Comments:quit 1989 Alcohol Use Standard Drinks/Week Comments Not Currently 0 (1 standard drink = 0.6 oz pure alcohol) Rarely - maybe 2 times a year PHQ-2 Answer Date Recorded PHQ-2 TOTAL SCORE 0 06/12/2024 Social Connections Answer Date Recorded Do you often feel lonely or isolated from those around you? 0 11/27/2023 Financial Resource Strain Answer Date R ecorded Difficulty of Paying Living Expenses 3 11/27/2023 Difficulty of Paying Living Expenses Not on file 11/27/2023 Food Insecurity Answer Date Recorded Do you worry your food will run out before you are able to buy more? 1 11/27/2023 Transportation Needs Answer Date Record ed Does lack of transportation keep you from medica l appointments? 1 11/27/2023 Does lack of transportation keep you from work, meetings or getting things that you need? 1 11/27/2023 Housing Stability Answer Date Recorded What is your housing situation today? 1 11/27/2023 Interpersonal Safety Answer Date Record ed Are you being hit, kicked, p ushed or yelled at (see row info)? No 11/22/2023 Interpersonal Safety Abuse 12 - 18 Not on file 11/22/2023 Interpersonal Safety Ambulatory Vulnerability No t on file 11/22/2023 Utilities Answer Date Recorded Do you have trouble paying f or utilities (for example, heat, electricity, water, phone)? 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 Not on file Not on file Not on file Obstetrics History Para Term AB IAB SAB Ectopic Multiple Livin g Live Births 3 3 3 3 Date Outcome GA Total Labor Labor/2nd/3rd Weight Sex Type Anes PTL Nelsy A1 A5 Name Clin Term Term Term Last Filed Vital Signs Vital Sign Reading Time Taken Comments Blood Pressure 88/61 06/12/2024 8:52 AM CDT Pulse 66 06/12/2024 8:52 AM CDT Temperature 36.5 C (97.7 F) 11/22/2023 8:25 AM MILIEU TECHNICIAN Respiratory Rate 18 11/22/2023 2:01 PM MILIEU TECHNICIAN Oxygen Saturation 98% 06/12/2024 8:52 AM CDT Inhaled Oxygen Concentration - - Weight 92.4 kg (203 lb 12.8 oz) 06/12/2024 8:52 AM CDT Height 153 cm (5' 0.25) 06/12/2024 8:52 AM CDT Body Mass Index 39.47 06/12/2024 8:52 AM CDT Plan of Treatment Upcoming Encounters Date Type Department Care Team (Late st Contact Info) Description 02/27/2025 9:00 AM CDT Office Visit [facility] [phone] [id number] Promise Bender MD [address] [facility] [address] [id number] Health Maintenance Due Date Last Done Comments RSV vaccine for adults or (1 - Risk 60-74 years 1-dose series) 2017 Tetanus booster 06/14/2020 06/14/2010 COVID-19 vaccine series ( season) 2024 07/11/2022, 12/24/2021, 07/16/2021, Additional history exists Influenza for age 65+ 05/25/2024 Mammogram for age 45-75 08/21/2024 08/21/20, 04/21/2022, 04/12/2021, Additional history exists BMI (ht and wt on same day) for age 18+ 06/12/2025 06/12/2024, 01/17/2024, 04/17/2023, Additional history exists Depression screening for age 12+ 06/12/2025 06/12/2024, 11/27/2023, 04/21/2022, Additional history exists Medicare Wellness for age 65+ 06/13/2025 06/12/2024, 04/21/2022 Fecal testing sDNA-FIT ([place] guard) for age 45-75 02/28/2026 02/28/2023 Lipids for age 45-75 06/12/2029 06/12/2024, 11/19/2023, 02/16/2023, Additional history exists Tdap Completed 06/14/2010 Hepatitis C screening for ag e 18-79 Completed 05/11/2015 Zoster (shingles) series for age 50+ Completed 01/11/2021, 04/06/2020 Pneumococcal series for age 50+ Completed DEXA/DXA scan for age 65+ Completed 05/22/2023 Medical Devices Implanted Type Area Faucets Assembler Device Identifier Shelf Expiration Date Model / Serial / Lot Alloderm 2x12mm [[id number]] [[id number] Implanted:Qty: 1 on 08/25/2005 at [facility] Explanted:at [facility] (Quantity not on file) N/A: Stomach [employer] [id number] / [id number] / [id number] Procedures Procedure Name Priority Date/Time Associated Diagnosis Comments LIPID PANEL W REFLEX MEASURED LDL Routine 06/12/2024 9:48 AM CDT Coronary artery disease involving lummi heart, unspecified vessel or lesion type, unspecified whether angina present XR MAMMO CHRISTAL BILAT SCREEN Routine 08/21/2023 7:34 AM MILIEU TECHNICIAN Visit for screening mammogram XR DXA BONE DENSITY 2 SITES AXIAL Routine 05/22/2023 11:43 AM CDT Menopause SDNA-FIT EXTERNAL (COLOGUARD) Routine 02/28/2023 8:30 AM CDT Screening for colon cancer ANTI HCV Routine 05/11/2015 5:20 PM CDT Screen for STD (sexually transmitted disease) from Last 3 Months or Most Recently Relevant to Health Maintenance Results * (ABNORMAL) LIPID PANEL W REFLEX MEASURED LDL (06/12/2024 9:48 AM CDT) CHOLESTEROL, TOTAL 125 <200 mg/dL [facility] HDL CHOLESTEROL 35(L) > OR = 50 mg/dL [facility] TRIGLYCERIDES 139 <150 mg/dL [facility] LDL-CHOLESTEROL 68 mg/dL (calc) [facility] Comment: Reference range: <100 Desirable range <100 mg/dL for primary prevention; <70 mg/dL for patients with CHD or diabetic patients with > or = 2 CHD risk factors. LDL-C is now calculated using the Maureen calculation, which is a validated novel method providing better accuracy than the Friedewald equation in the estimation of LDL-C. Mateo SS et al. IZABELA. 2013;310(19): 9222-1753 (http://education.Optimalize.me/faq/IBB786) CHOL/HDLC RATIO 3.6 <5.0 (calc) [facility] NON HDL CHOLESTEROL 90 <130 mg/dL (calc) [facility] Comment: For patients with diabetes plus 1 major ASCVD risk factor, treating to a non-HDL-C goal of <100 mg/dL (LDL-C of <70 mg/dL) is considered a therapeutic option. Blood BLOOD SPECIMEN / Unknown 06/12/2024 9:48 AM CDT 06/12/2024 9:49 AM CDT us Chantel Koch MD CHEMISTRY Final Result [facility] [address] [place] [address], [place] [phone] [facility] [address] [place] [address] * XR MAMMO CHRISTAL BILAT SCREEN (08/21/2023 7:34 AM MILIEU TECHNICIAN) Anatomical Region Laterality Modality BREASTS, Breast Left, Breast Right Bilateral Mammography Impressions 08/23/2023 8:55 AM MILIEU TECHNICIAN There is no radiographic evidence for malignancy. Recommend annual mammograms. MAMMOGRAM ASSESSMENT: ACR 1 Negative PATIENTS: You will also receive a letter with your examination results in an easy to read format. If you have questions about your results, please contact your referring provider. Narrative 08/23/2023 8:55 AM MILIEU TECHNICIAN For Patients: As a result of the Century Cures Act, medical imaging exams and procedure reports are released immediately into your electronic medical record. You may view this report before your referring provider. If you have questions, please contact your health care provider. XR MAMMO CHRISTAL BILAT SCREEN [[id number]] CLINICAL HISTORY: This is an asymptomatic 68 y.o. patient. INDICATION FOR EXAM: Mammogram Screening. TECHNIQUE: CC & MLO views were obtained. This study was evaluated with the assistance of Computer-Aided Detection. Breast Tomosynthesis was used in interpretation. COMPARISON FILM: Yes 04/21/22 [employer] 04/12/21 [employer] FINDINGS: The breasts have scattered areas of fibroglandular density. There are no dominant masses, suspicious micro calcifications or areas of architectural distortion. us Chantel Koch MD MAMMO Final Result * (ABNORMAL) XR DXA BONE DENSITY 2 SITES AXIAL (05/22/2023 11:43 AM CDT) Anatomical Region Laterality Modality Spine, HIPS, HIPL, HIPR Other Impressions 05/29/2023 4:11 PM CDT Osteopenia. RECOMMENDATIONS: The National Osteoporosis Foundation recommends pharmacologic treatment for patients with T-scores of -2.5 or less, patients with prior history of fragility fractures, or patients with 10-year probability of greater than 3% at hips or greater than 20% of suffering major osteoporotic fractures. Recommend continued optimization of calcium and vitamin D intake through dietary means and/or supplementation and regular exercise. Repeat scan recommended in 3-5 years. Rachana Sanchez PA-C [facility] 05/29/2023 Narrative 05/29/2023 4:11 PM CDT For Patients: Results are automatically released to your [employer] account once available, in compliance with federal regulations. This means that you may see your results before your provider has had a chance to review them. Please allow 2-3 business days for your provider to comment on the results. XR DXA Bone Mineral Density (BMD) EXAM LOCATION: [facility] [address] [facility] [address] PATIENT NAME: Estefany Boyd DATE OF : 1955 EXAM DATE: 05/22/2023 REQUESTING PROVIDER: Chantel Koch MD GENDER AT : female HEIGHT: 5' 0.51 (04/17/2023) WEIGHT: 226 lb 9.6 oz (04/17/2023) MENOPAUSAL STATUS: Postmenopausal RACE/ETHNICITY: White RISK FACTORS: Bariatric Surgery, Smoking (prior), White Race, and Total hysterectomy CURRENT MEDICATION FOR BONE LOSS: NONE INDICATION: Menopause COMPARISON DATE(S): None DXA scans are compared to prior studies for a patient only when the two (or more) studies were performed on the same scanner. It is not possible to compare data generated on one scanner to data from another because there are not standards in DXA equipment. This applies even if the two scanners are made by the same architectural design professor. PROCEDURE: Dual-energy x-ray absorptiometry performed with routine technique. Reporting is completed in the form of a T-score. The T-score represents the standard deviation from peak bone mass based on young healthy adult. A Z-score is used for diagnosis in premenopausal women, and for men under the age of 50. FINDINGS: RESULT LUMBAR SPINE L1 - L2 BMD: 1.046 g/cm2 T-Score: - 1.1 Z-Score: - 0.6 Change from prior: None RESULTS FEMUR Left femoral neck BMD: 0.849 g/cm2 T-Score: - 1.4 Z-Score: - 0.6 Change from prior: None Right femoral neck BMD: 0.861 g/cm2 T-Score: - 1.3 Z-Score: - 0.5 Change from prior: None Left hip BMD: 0.902 g/cm2 T-Score: - 0.8 Z-Score: - 0.4 Change from prior: None Right hip BMD: 0.992 g/cm2 T-Score: - 0.1 Z-Score: + 0.3 Change from prior: None WHO criteria: Normal: T-score at or above -1 SD Osteopenia: T-score between -1.1 and -2.4 SD Osteoporosis: T-score at or below -2.5 SD FRAX RISK CALCULATION (USED FOR OSTEOPENIA ONLY): 10-year probability of major osteoporotic fracture: 14.1%. 10-year probability of hip fracture: 0.9%. Chantel Koch MD DEXA Final Result * SDNA-FIT EXTERNAL (COLOGUARD) (02/28/2023 8:30 AM CDT) Pathologist [facility] NONINV COLON CA DNA+OCC BLD SCRN STL-IMP Negative Negative 03/08/2023 4:38 PM CDT [facility] (CLIA #:[id number]) Comment: NEGATIVE TEST RESULT. A negative Cologuard result indicates a low likelihood that a colorectal cancer (CRC) or advanced adenoma (adenomatous polyps with more advanced pre-malignant features) is present. The chance that a person with a negative Cologuard test has a colorectal cancer is less than 1 in 1500 (negative predictive value >99.9%) or has an advanced adenoma is less than 5.3% (negative predictive value 94.7%). These data are based on a prospective cross-sectional study of 10,000 individuals at average risk for colorectal cancer who were screened with both Cologuard and colonoscopy. (Patricio Hathaway. et al, N Engl J Med 2014;370(14):2106-7627) The normal value (reference range) for this assay is negative. COLOGUARD RE-SCREENING RECOMMENDATION: Periodic colorectal cancer screening is an important part of preventive healthcare for asymptomatic individuals at average risk for colorectal cancer. Following a negative Cologuard result, the [place] Cancer Society and U.S. Multi-Society Task Force screening guidelines recommend a Cologuard re-screening interval of 3 years. References: [place] [employer] Society Guideline for Colorectal Cancer Screening: https://www.cancer.org/cancer/suoss-vslser-jnpuwv/lthdguqdk-uttjaxkxe-bvifdup/ac s-rec ommendations.html.; Oneal GRANDA, Lacho WHEELER, Chantel ALLEN, Colorectal Cancer Screening: Recommendations for Physicians and Patients from the U.S. Multi-Society Task Force on Colorectal Cancer Screening , Am J Gastroenterology 2017; 112:5208-5615. TEST DESCRIPTION: Composite algorithmic analysis of stool DNA-biomarkers with hemoglobin immunoassay. Quantitative values of individual biomarkers are not reportable and are not associated with individual biomarker result reference ranges. Cologuard is intended for colorectal cancer screening of adults of either sex, 45 years or older, who are at average-risk for colorectal cancer (CRC). Cologuard has been approved for use by the U.S. FDA. The performance of Cologuard was established in a cross sectional study of average-risk adults aged 50-84. Cologuard performance in patients ages 45 to 49 years was estimated by sub-group analysis of near-age groups. Colonoscopies performed for a positive result may find as the most clinically significant lesion: colorectal cancer [4.0%], advanced adenoma (including sessile serrated polyps greater than or equal to 1cm diameter) [20%] or non- advanced adenoma [31%]; or no colorectal neoplasia [45%]. These estimates are derived from a prospective cross-sectional screening study of 10,000 individuals at average risk for colorectal cancer who were screened with both Cologuard and colonoscopy. (Patricio Carmona al, N Engl J Med 2014;370(14):1813-7291.) Cologuard may produce a false negative or false positive result (no colorectal cancer or precancerous polyp present at colonoscopy follow up). A negative Cologuard test result does not guarantee the absence of CRC or advanced adenoma (pre-cancer). The current Cologuard screening interval is every 3 years. ([place] [employer] Society and U.S. Multi-Society Task Force). Cologuard performance data in a 10,000 patient pivotal study using colonoscopy as the reference method can be accessed at the following location: www.[employer] Network/results. Additional description of the Cologuard test process, warnings and precautions can be found at www.POKKTrd.com. Stool specimen (specimen) (Rectum) 02/28/2023 8:30 AM CDT 03/01/2023 4:12 PM CDT Chantel Koch MD URINE Final Result [facility] (CLIA #:[id number]) [place] [address], [place] [phone] * ANTI HCV (05/11/2015 5:20 PM CDT) HEPATITIS C ANTIBODY Non-Reacti ve Non-Reacti ve 05/12/2015 1:52 PM CDT [facility] Blood specimen (specimen) BLOOD SPECIMEN / Unknown Venipuncture / Unknown 05/11/2015 5:20 PM CDT 05/11/2015 5:20 PM CDT Narrative [facility] - 05/12/2015 1:52 PM CDT Antibodies to HCV not detected; does not exclude the possibility of exposure to HCV. Chantel Koch MD SEND OUTS Final Result [facility] [address] [place] [address], from Last 3 Months or Most Recently Relevant to Health Maintenance Insurance MEDICARE PART A HB ONLY [employer] PB ONLY WC WORKERS COMP WORKERS COMP Member Subscriber Plan / Payer (Ef fective 2009-Present) Name:Estefany Boyd Relation to Subscriber:Self Name:Estefany Boyd Payer ID:Not on file Group ID:Not on file Type:Not on file [phone] Address: [address] [place] [address] WORKERS COMP [facility] Advance Directives * Full Code (Latest Code Status on File) Date Activated Date Inactivated Comments 11/22/2023 8:55 AM 11/22/2023 6:18 PM Question Answer Comments Code Status Discussion: Reviewed Preferences * Full Code Date Activated Date Inactivated Comments 06/11/2020 10:19 PM 06/14/2020 4:00 PM Question Answer Comments Code Status Discussion: Discussed * Full Code Date Activated Date Inactivated Comments 06/18/2018 6:59 PM 06/20/2018 1:18 PM * Full Code Date Activated Date Inactivated Comments 06/18/2018 6:05 PM 06/18/2018 6:59 PM Question Answer Comments Code Status Discussion: Not Discussed * Full Code Date Activated Date Inactivated Comments 02/22/2007 11:32 PM 02/25/2007 1:44 PM Care Teams Radiation Control Worker Relationship Specialty Start Date End Date Chantel Koch MD [address] [place] [address] PCP - General 08/01/05
--- OUTSIDE RECORDS SUMMARY | 2024-11-22 07:53 | XMS_ITS ---
Author Name ANAMARIA WILLIS TIMOT HY Address Unknown Phone [phone] Organization Unknown Address Unknown Phone [phone] Care Team Providers Care Landcare Facilitator Name Role Phone ANAMARIA WILLIS CRNA TIMOTHY Attending [phone] ANAMARIA WILLIS CRNA TIMOTHY Admitting [phone] OUT OF AREA, . Primary Care [phone] ANAMARIA WILLIS CRNA TIMOTHY Physician [phone] Allergies and Intolerances Substance Reaction Severity Activated [...] Procedure Date Status Biopsy of breast (procedure) [041468055] completed Bypass of stomach (procedure) [819266833] completed Hysterectomy (procedure) [008225575] completed Placement of stent in [place]helm [place] artery (procedure) [[id number]] completed Total replacement of right k nee joint (procedure) [526064090] completed Appendectomy (procedure) [42214561] completed Cholecystectomy (procedure) [90645217] completed Vital Signs Description Result Charted Date/Time LOINC Blood Pressure - Systolic mm [Hg] - Sitting - Left Arm 106 11/22/2022 07:24 8480-6 Blood Pressure - Diastolic m m[Hg] - Sitting - Left Arm 62 11/22/2022 07:24 8462-4 MAP mm/Hg 76.67 11/22/2022 07:24 8478-0 Height/Length cm/in 152.4 / 60 11/22/2022 07:24 8302 -2 Weight kg/lb oz 104.33 / 230 11/22/2022 07:24 44590-7 BMI (Ratio) 44.92 11/22/2022 07:24 01656-0 Temperature deg F/Kathleen 97 / 36.1 11/22/2022 07:24 83 10-5 Heart Rate /min 80 11/22/2022 07:24 8867-4 Respiration /min 20 11/22/2022 07:24 9279-1 Pain Scale 7 11/22/2022 07:24 70301-3 SpO2 % 94 11/22/2022 07:24 16169-4 Plan of Treatment Plan Description Date Appointment [...]
--- OUTSIDE RECORDS SUMMARY | 2024-11-22 07:53 | XMS_ITS ---
Author Name ANAMARIA WILLIS TIMOT HY Address Unknown Phone [phone] Organization Unknown Address Unknown Phone [phone] Care Team Providers Care Facilities Assistant Name Role Phone ANAMARIA WILLIS CRNA TIMOTHY Attending [phone] OUT OF AREA, . Primary Care [phone] ANAMARIA WILLIS CRNA TIMOTHY Physician [phone] Allergies and Intolerances Substance Reaction Severity Activated [...] Procedure Date Status Biopsy of breast (procedure) [691482924] completed Bypass of stomach (procedure) [842539616] completed Hysterectomy (procedure) [443522351] completed Placement of stent in [place] artery (procedure) [85594109] completed Total replacement of right k nee joint (procedure) [316241072] completed Appendectomy (procedure) [65379336] completed Cholecystectomy (procedure) [21523548] completed Plan of Treatment Plan Description Date Appointment ANAMARIA WILLIS TIMOTHY 3 Social History SOCIAL HISTORY TOBACCO USE Type Status Start Date End Date Last Reviewed Current Smoking Status Tobacco smoking c onsumption unknown Gender Identity and Sexual O rientation Type Status Last Reviewed Sex Female 00:00
--- OUTSIDE RECORDS SUMMARY | 2024-11-22 07:53 | XMS_ITS ---
Author Name ANAMARIA WILLIS TIMOT HY Address Unknown Phone [phone] Organization Unknown Address Unknown Phone [phone] Care Team Providers Care Shirt Finisher Name Role Phone ANAMARIA WILLIS CRNA TIMOTHY Attending [phone] OUT OF AREA, . Primary Care [phone] ANAMARIA WILLIS CRNA TIMOTHY Physician [phone] Allergies and Intolerances Substance Reaction Severity Activated [...] Procedure Date Status Biopsy of breast (procedure) [[id number]] completed Bypass of stomach (procedure) [160707978] completed Hysterectomy (procedure) [[id number]] completed Placement of stent in [place] artery (procedure) [[id number]] completed Total replacement of right k nee joint (procedure) [049814035] completed Appendectomy (procedure) [78715942] completed Cholecystectomy (procedure) [04698588] completed Plan of Treatment Plan Description Date [...]
--- OUTSIDE RECORDS SUMMARY | 2024-11-22 07:53 | XMS_ITS ---
Author Name ANAMARIA WILLIS TIMOT HY Address Unknown Phone [phone] Organization Unknown Address Unknown Phone [phone] Care Team Providers Care Manager Delivery Name Role Phone ANAMARIA WILLIS CRNA TIMOTHY Attending [phone] ANAMARIA WILLIS CRNA TIMOTHY Admitting [phone] OUT OF AREA, . Primary Care [phone] ANAMARIA WILLIS CRNA TIMOTHY Physician [phone] Allergies and Intolerances Substance Reaction Severity Activated [...] Procedure Date Status Biopsy of breast (procedure) [466288786] completed Bypass of stomach (procedure) [010259782] completed Hysterectomy (procedure) [418179648] completed Placement of stent in [place] artery (procedure) [08180581] completed Total replacement of right k nee joint (procedure) [460560591] completed Appendectomy (procedure) [64582259] completed Cholecystectomy (procedure) [01495274] completed Vital Signs Description Result Charted Date/Time LOINC Blood Pressure - Systolic mm [Hg] - Sitting - Right arm 124 11/29/2022 09:06 8480-6 Blood Pressure - Diastolic m m[Hg] - Sitting - Right arm 58 11/29/2022 09:06 8462-4 MAP mm/Hg 80 11/29/2022 09:06 8478-0 Height/Length cm/in 152.4 / 60 11/29/2022 08:04 8302 -2 Weight kg/lb oz 103.87 / 229 11/29/2022 08:04 52718-6 BMI (Ratio) 44.72 11/29/2022 08:04 60810-6 Temperature deg F/Kathleen 97.5 / 36.4 11/29/2022 09:06 83 10-5 Heart Rate /min 65 11/29/2022 09:06 8867-4 Respiration /min 18 11/29/2022 09:06 9279-1 Pain Scale 0 11/29/2022 09:06 90286-8 Blood Sugar mg/dL 163 11/29/2022 08:04 58473- 7 SpO2 % 94 11/29/2022 09:06 28482-2 Plan of Treatment Plan Description Date Appointment [...]
[2024-11-22 08:01] VITALS: BP 131/83; PULSE 76; RESP 14; TEMP 35.9; O2SAT 97; BMI 39.3
--- NOTE | 2024-11-22 08:40 | ED.GENADULT ---
HPI - General Adult General Date Seen: 11/22/24 Chief complaint: Flank Pain Stated complaint: right side to back pain Time Seen by Provider: 11/22/24 07:59 Source: patient Mode of arrival: ambulatory Limitations: no limitations History of Present Illness HPI narrative: Patient is a 69 year old female presenting to the emergency department for right lateral mid flank pain. She states she 1st started noticing the pain work 4 days ago. At that time it was only painful when she pushed on it but now it seems to be more consistent. She describes the pain as a dull ache lab becomes sharp upon palpation. Has not had any associated fevers, nausea, vomiting, diarrhea, dysuria. She does states she has had UTIs several times in the past. The does notice worsening pain with movement. Does not remember any recent heavy lifting or injuries. No history of kidney stones. Has had previous cholecystectomy and appendectomy. She does states she is on Ozempic and was concerned she could have some pancreatitis. Does admit to some mild epigastric discomfort. And no other concerns noted. Has had previous gastric bypass surgery. Related Data Home Medications ?Medication ?Instructions ?Recorded ?Confirmed cholecalciferol (vitamin D3) 25 25 mcg PO DAILY 08/28/22 08/21/23 mcg (1,000 unit) capsule gabapentin 100 mg capsule 100 mg PO HS 08/28/22 08/21/23 levothyroxine 88 mcg capsule 88 mcg PO DAILY 08/28/22 08/21/23 lisinopril 2.5 mg tablet 2.5 mg PO DAILY 08/28/22 08/21/23 metoprolol succinate 50 mg 25 - 50 mg PO BID 08/28/22 08/21/23 tablet,extended release 24 hr nitroglycerin 0.4 mg sublingual 0.4 mg sublingual Q5M PRN 08/28/22 08/21/23 tablet rosuvastatin 10 mg tablet 10 mg PO HS 08/28/22 08/21/23 blood sugar diagnostic (True #10 ea 04/05/23 08/21/23 Metrix Glucose Test Strip) blood-glucose meter (True Metrix #1 ea 04/05/23 08/21/23 Glucose Meter kit) cyanocobalamin (vitamin B-12) 1,000 mcg IM Q4W 04/05/23 08/21/23 1,000 mcg/mL injection solution lancets 33 gauge (TRUEplus Lancets) #100 ea 04/05/23 08/21/23 aspirin 81 mg tablet,delayed 81 mg PO QDAY 04/17/23 08/21/23 release sumatriptan succinate 25 mg tablet 25 mg PO PRN 04/17/23 08/21/23 Previous Rx's ?Medication ?Instructions ?Recorded acetaminophen 500 mg tablet 500 - 1,000 mg (1 - 2 x 500 mg) PO 03/07/23 Q6H PRN #100 tabs Allergies Allergy/AdvReac Type Severity Reaction Status Date / Time morphine Allergy Severe Vomiting Verified 11/22/24 08:49 codeine Allergy Nausea Verified 11/22/24 08:00 NSAIDS (Non-Steroidal Allergy bariatric Verified 11/22/24 08:00 Anti-Inflamma surgery penicillin V Allergy Hives Verified 11/22/24 08:00 ticagrelor (From Brilinta) Allergy short of Verified 11/22/24 08:00 breath, nausea, headache ,myalgia venlafaxine Allergy Dizziness Verified 11/22/24 08:00 verapamil Allergy Hives Verified 11/22/24 08:00 Review of Systems Status of ROS: Reports: 10 or more systems reviewed and unremarkable except as noted in History and below [facility] Medical History Migraine syndrome ?G43.909 - Migraine, unspecified, not intractable, without status migrainosus (ICD-10) Type II diabetes mellitus ?E11.9 - Type 2 diabetes mellitus without complications (ICD-10) SUMANTH (obstructive sleep apnea) ?G47.33 - Obstructive sleep apnea (adult) (pediatric) (ICD-10) Vitamin D deficiency ?E55.9 - Vitamin D deficiency, unspecified (ICD-10) CAD (coronary artery disease) ?I25.10 - Atherosclerotic heart disease of [place] coronary artery without angina pectoris (ICD-10) Depression ?F32.A - Depression, unspecified (ICD-10) Arthritis ?M19.90 - Unspecified osteoarthritis, unspecified site (ICD-10) Heart attack (2020) ?I21.9 - Acute myocardial infarction, unspecified (ICD-10) Hypertension ?I10 - Essential (primary) hypertension (ICD-10) Chest pain ?R07.9 - Chest pain, unspecified (ICD-10) Hypothyroid ?E03.9 - Hypothyroidism, unspecified (ICD-10) Surgical History Status post surgical manipulation of knee joint (04/25/23) ?Z98.890 - Other specified postprocedural states (ICD-10) History of total left knee replacement (03/07/23) ?Z96.652 - Presence of left artificial knee joint (ICD-10) History of anterior colporrhaphy ?Z98.890 - Other specified postprocedural states (ICD-10) S/P right knee arthroscopy (09/28/04) ?Z98.890 - Other specified postprocedural states (ICD-10) History of coronary artery stent placement ?Z95.5 - Presence of coronary angioplasty implant and graft (ICD-10) H/O gastric bypass ?Z98.84 - Bariatric surgery status (ICD-10) History of total right knee replacement (06/22/10) ?Z96.651 - Presence of right artificial knee joint (ICD-10) H/O: hysterectomy (~2004) ?Z90.710 - Acquired absence of both cervix and uterus (ICD-10) Hx of cholecystectomy ?Z90.49 - Acquired absence of other specified parts of digestive tract (ICD-10) H/O breast biopsy ?Z98.890 - Other specified postprocedural states (ICD-10) Hx of appendectomy (2008) ?Z90.49 - Acquired absence of other specified parts of digestive tract (ICD-10) Family History Father Myocardial infarction Mother COPD (chronic obstructive pulmonary disease) Rheumatoid arthritis Brother Diabetes Skin cancer Sleep apnea Alcohol abuse Sister Alcohol abuse Social History Smoking Status: Former smoker What tobacco products do you use: cigarettes Smoking quit date/years: >15 years ago Do you use any of these nicotine containing products: None Second hand tobacco smoke exposure: No How often do you have a drink containing alcohol: monthly or less Alcohol type: wine How many standard drinks containing alcohol do you have on a typical day: 1 or 2 How often do you have six or more drinks on one occasion: Never AUDIT-C Alcohol total score: 1 Non-prescribed substance use: denies use Caffeine: No Are you using contraception or practicing any form of control: No service: No Exam Narrative: Exam Narrative: Const: Well-nourished, Well-developed, in mild distress Eyes: PERRL, no conjunctival injection, and symmetrical lids HENT: Atraumatic external nose and ears. Moist mucous membranes. Neck: Symmetric, trachea midline, No thyromegaly. CVS: RRR, No murmurs or gallops. Peripheral pulses 2+ and equal in all extremities RESP: Unlabored respiratory effort. Clear to auscultation bilaterally. GI: Right lateral mid flank tenderness, mild epigastric tenderness. Nondistended, No rebound or guarding. MSK:Extremities w/o deformity, Normal Active ROM Skin: Warm, Dry. No rashes or lesions. Neuro: Normal Muscle tone, No focal neurological deficits. Psych: Awake, Alert, & Oriented x3. Appropriate mood and affect. Const: Vital Signs, click to edit/add: Vital Signs - 24 hr 11/22/24 08:01 11/22/24 09:15 Temperature 96.7 F L Pulse Rate 77 Pulse Rate [Pulse Oximeter] 76 Respiratory Rate 14 16 Blood Pressure 132/77 Blood Pressure [Ri ght Upper Arm] 131/83 Pulse Oximetry 97 98 Oxygen Delivery Me thod Room Air Course Vital Signs Vital signs: Initial Vital Signs Temperature 96.7 F L 11/22/24 08:01 Temperature Source Temporal Artery Scan 11/22/24 08:01 Pulse Rate 76 11/22/24 08:01 Pulse Rhythm Regular 11/22/24 08:01 Respiratory Rate 14 11/22/24 08:01 Blood Pressure 131/83 11/22/24 08:01 Blood Pressure Mean 99 11/22/24 08:01 Blood Pressure Position Sitting 11/22/24 08:01 Pulse Oximetry 97 11/22/24 08:01 Oxygen Delivery Method Room Air 11/22/24 08:01 Vital Signs Temperature 96.7 F L 11/22/24 08:01 Pulse Rate 76 11/22/24 08:01 Respiratory Rate 14 11/22/24 08:01 Blood Pressure 131/83 11/22/24 08:01 Pulse Oximetry 97 11/22/24 08:01 Oxygen Delivery Method Room Air 11/22/24 08:01 Temperature 96.7 F L 11/22/24 08:01 Pulse Rate 77 11/22/24 09:15 Respiratory Rate 16 11/22/24 09:15 Blood Pressure 132/77 11/22/24 09:15 Pulse Oximetry 98 11/22/24 09:15 Oxygen Delivery Method Room Air 11/22/24 08:01 Medications Administered Medications: Discontinued Medications Generic Name Dose Route Start Last Admin Trade Name Jose Manuel PRN Reason Stop Dose Admin Ketorolac Tromethamine 15 mg 11/22/24 08:57 11/22/24 09:08 Ketorolac 15 Mg/Ml Inj IVP 11/22/24 08:58 15 mg ONCE ONE Administration Morphine Sulfate 4 mg 11/22/24 08:27 11/22/24 09:07 Morphine 4 Mg/Ml Inj IVP 11/22/24 08:28 Not Given ONCE ONE Ondansetron HCl 4 mg 11/22/24 08:28 11/22/24 09:09 Ondansetron 2 Mg/Ml Inj IVP 11/22/24 08:29 Not Given ONCE ONE Medical Decision Making MDM Narrative Medical decision making narrative: Patient is a 69-year-old female presenting for abdominal pain. Location of her abdominal pain seems more consistent with a muscle strain. Could also also be nephrolithiasis the last likely. There is no tenderness to palpation with light touch in seems less likely to be the beginning stages of shingles. She does have some epigastric discomfort which could be related to pancreatitis, liver disease, gastroenteritis. This could also be uncommon presentation for ACS considering her age. Will do an EKG, troponin, CBC, CMP, lipase. Will also do CT scan with IV contrast. Toradol given for pain. She states she can take IV NSAIDs. Lab work returned showing no concerning abnormalities. No clear signs of pancreatitis. EKG and troponin shows no obvious abnormalities. Considering length the symptoms I do not believe repeat troponin is necessary. CT scan reviewed by myself and the radiologist shows constipation but no other acute abnormalities. She is quite constipated. She states her last bowel movement was 3 days ago and that was normal for her. She states she usually has a bowel movement every 3-4 days. Does take stool softeners twice a day. The constipation could be causing her epigastric pain. This other flank pain seems more likely to be musculoskeletal issue. Will discharge her at this time. Lab Data Labs: Lab Results 11/22/24 Range/Units 08:55 WBC 6.38 (4.50-11.00) K/uL RBC 4.54 (4.00-5.20) m/uL Hgb 13.5 (12.0-16.0) gm/dL Hct 42.2 (33.0-51.0) % MCV 93 (80-100) fL MCH 30 (26-34) pg MCHC 32 (32-36) gm/dL RDW Coeff of Page 13.0 (11.5-15.5) % Plt Count 262 (140-440) K/uL Neut % (Auto) 48.3 (42.0-72.0) % Lymph % (Auto) 40.0 (20-44) % [place] % (Auto) 8.3 (0.0-11.0) % Eos % (Auto) 2.7 (0.0-7.0) % Baso % (Auto) 0.5 (0.0-3.0) % Neut # (Auto) 3.09 (1.7-7.0) K/uL Lymph # (Auto) 2.55 (0.90-2.90) K/uL [place] # (Auto) 0.50 (0.00-0.90) K/UL Eos # (Auto) 0.17 (0.00-0.50) K/uL Baso # (Auto) 0.03 (0.00-0.30) K/uL Abs Immat Gran (auto) 0.01 (0.00-0.30) K/uL Imm/Tot Granulo (auto) 0.2 % Sodium 138 (135-149) mmol/L Potassium 4.2 (3.6-5.1) mmol/L Chloride 102 (96-114) mmol/L Carbon Dioxide 30 (20-32) mmol/L Anion Gap 6 L (7-15) mEq/L BUN 21 (7-30) mg/dL Creatinine 0.9 (0.5-1.5) mg/dL Estimated Creat Clear 39.21 Estimated GFR 70 ml/min Glucose 127 H (60-115) mg/dL Calcium 8.9 (8.4-10.6) mg/dL Total Bilirubin 0.5 (0.1-1.5) mg/dL Direct Bilirubin 0.2 (0.0-0.5) mg/dL AST 20 (12-35) U/L ALT 20 (4-35) U/L Alkaline Phosphatase 72 (40-150) U/L Total Protein 6.5 (6.0-8.3) g/dL Albumin 4.1 (3.3-5.0) g/dL Lipase 79 (23-300) U/L POC Creatinine 0.9 (0.6-1.3) mg/dl POC Troponin I 0.00 L (0.01-0.04) ng/ml Imaging Data CT scan abdomen and pelvis: Attestation: I have reviewed the pertinent imaging results. Radiologist's impression: No acute findings in the abdomen or pelvis. Abundant stool in the colon. Please note that all CT scans at this facility use dose modulation, iterative reconstruction, and/or weight-based dosing when appropriate to reduce radiation dose to as low as reasonably achievable. Dictated by Kailey Jefferson MD @ 11/22/2024 10:36:07 AM ECG Data Attestation: I personally reviewed and interpreted this ECG as follows: Prior ECG tracings: not available for review Interpretation: Normal sinus rhythm with a rate 64 beats per minute, normal intervals, normal axis, no ST or T-wave abnormalities. Discharge Plan Discharge Clinical Impression: Strain of abdominal muscle Qualifiers: Encounter type: initial encounter Qualified Code(s): S39.011A - Strain of muscle, fascia and tendon of abdomen, initial encounter Constipation Qualifiers: Constipation type: unspecified constipation type Qualified Code(s): K59.00 - Constipation, unspecified Patient Disposition: Home, Self-Care Condition: Stable Instructions: Constipation (DC), Abdominal Pain (ED) Additional Instructions: At this time I believe your side pain is most likely related to a muscle strain. I do not see any signs of a to her abdominal issues that could be causing his pain. With your upper abdominal pain I believe this is likely related to your constipation. You may want to increase your stool softener. Make sure to closely monitor your stools for signs of worsening constipation. There is no signs of liver or pancreatic disease at this time. Return to emergency department for new or worsening symptoms. Prescriptions: No Action lisinopril 2.5 mg tablet 2.5 mg PO DAILY rosuvastatin 10 mg tablet 10 mg PO HS nitroglycerin 0.4 mg tablet, sublingual 0.4 mg sublingual Q5M PRN Rx Instructions: do not exceed 3 doses per episode gabapentin 100 mg capsule 100 mg PO HS levothyroxine 88 mcg capsule 88 mcg PO DAILY metoprolol succinate 50 mg tablet extended release 24 hr 25 - 50 mg PO BID Patient Comments: 25 MG IN AM 50 MG IN PM cholecalciferol (vitamin D3) 25 mcg (1,000 unit) capsule 25 mcg PO DAILY aspirin 81 mg tablet,delayed release (DR/EC) 81 mg PO QDAY cyanocobalamin (vitamin B-12) 1,000 mcg/mL solution 1,000 mcg IM Q4W (DME) lancets [TRUEplus Lancets] 33 gauge misc See Rx Instructions .ROUTE .MEDSUPPLY Qty: 100 Rx Instructions: As directed (DME) blood-glucose meter [True Metrix Glucose Meter] Kit See Rx Instructions .ROUTE .MEDSUPPLY Qty: 1 Patient Comments: [NO ORIGINAL SIG] Rx Instructions: As directed (DME) True Metrix Glucose Test Strip Strip See Rx Instructions .ROUTE .MEDSUPPLY Qty: 10 Patient Comments: [NO ORIGINAL SIG] Rx Instructions: As directed sumatriptan succinate 25 mg tablet 25 mg PO PRN acetaminophen 500 mg tablet 500 - 1,000 mg PO Q6H PRNQty: 100 0RF Follow Up/Referrals: Chantel Koch MD [Primary Care Provider] - Stand Alone Forms: [facility] Info Instructions
[2024-11-22 09:06] LABS: Basophils Absolute Auto 0.03 K/uL (0.00-0.30); Basophils Percent Auto 0.5 % (0.0-3.0); Eosinophils Absolute Auto 0.17 K/uL (0.00-0.50); Eosinophils Percent Auto 2.7 % (0.0-7.0); Hematocrit 42.2 % (33.0-51.0); Hemoglobin* 13.5 gm/dL (12.0-16.0); Immature Granulocytes Abs Auto 0.01 K/uL (0.00-0.30); Immature Granulocytes Pct Auto 0.2 %; Lymphocytes Absolute Auto 2.55 K/uL (0.90-2.90); Mean Corpuscular HGB Conc 32 gm/dL (32-36); Mean Corpuscular Hemoglobin 30 pg (26-34); Mean Corpuscular Volume 93 fL (80-100); Monocytes Percent Auto 8.3 % (0.0-11.0); Neutrophils Absolute Auto 3.09 K/uL (1.7-7.0); Neutrophils Percent Auto 48.3 % (42.0-72.0); Platelet Count* 262 K/uL (140-440); Red Blood Count 4.54 m/uL (4.00-5.20); White Blood Count* 6.38 K/uL (4.50-11.00)
[2024-11-22 09:08] LABS: Slide Review Reflex No
[2024-11-22] MEDS: KETOROLAC 15 MG/ML inj IVP (09:08)
[2024-11-22 09:15] VITALS: BP 132/77; PULSE 77; RESP 16; O2SAT 98
[2024-11-22 09:16] LABS: Creatinine, Point-of-Care* 0.9 mg/dl (0.6-1.3)
[2024-11-22 09:20] LABS: Albumin* 4.1 g/dL (3.3-5.0); Chloride* 102 mmol/L (96-114); Sodium* 138 mmol/L (135-149)
[2024-11-22 09:21] LABS: Potassium* 4.2 mmol/L (3.6-5.1)
[2024-11-22 09:23] LABS: Alkaline Phosphatase* 72 U/L (40-150); Anion Gap 6 mEq/L (7-15); Aspartate Amino Transferase* 20 U/L (12-35); Bilirubin Direct* 0.2 mg/dL (0.0-0.5); Bilirubin Total* 0.5 mg/dL (0.1-1.5); Blood Urea Nitrogen* 21 mg/dL (7-30); Calcium* 8.9 mg/dL (8.4-10.6); Carbon Dioxide* 30 mmol/L (20-32); Creatinine* 0.9 mg/dL (0.5-1.5); Est. Creatinine Clearance* 39.21; Estimated Glomerular Filt Rate 70 ml/min; Glucose* 127 mg/dL (60-115); Total Protein* 6.5 g/dL (6.0-8.3)
[2024-11-22 09:24] LABS: Alanine Aminotransferase* 20 U/L (4-35); Lipase* 79 U/L (23-300)
[2024-11-22 11:35] VITALS: BP 131/83; PULSE 76; RESP 16; TEMP 35.9
== END 2024-11-22 11:35 | disposition home or self-care (01) ==
PROVIDERS: Emergency Provider Student in an Organized Health Care Education/Training Program; PCP Family Medicine
DX: S39.011A Strain of muscle, fascia and tendon of abdomen, initial encounter (principal); K59.00 Constipation, unspecified
CPT/HCPCS: 36415; 74177; 80048; 80076; 82565; 83690; 84484; 85025; 93005; 96374; 99284; J1885; Q9967